=== PATIENT | male | born 1975 | race Caucasian/White ===

== ENCOUNTER → 2016-12-27 | Outpatient (CLI) | payer BC ==
[~2016-12-27] MED LIST: CIPR500T4 PO; CLIN300C3 PO; CYAN500T2 PO; HYDR-3714 PO
--- NOTE | 2016-12-27 17:25 | Diagnostic Imaging Report ---
INDICATION: Nephrolithiasis EXAM: KUB at 3:38 PM FINDINGS: There is a 3 mm opaque stone projecting over the inferior pole of the left kidney. Fecal material in the colon could obscure other small calculi. The bowel gas pattern is normal. IMPRESSION: There appears to be at least one small calculus in the inferior pole of the left kidney. Dictated by: Dictated on workstation # [id number]
== END ==
LOC: RAD 15:04
PROVIDERS: ATTEND Urology
DX: N20.0 Calculus of kidney (principal)
CPT/HCPCS: 74000

== ENCOUNTER 2016-12-28 10:24 | Day surgery (SDC) | payer BC ==
[~2016-12-28] VITALS: Ht 180.3 cm; Wt 108.9 kg
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
--- NOTE | 2016-12-28 09:29 | Progress Note-Pre Operative ---
Pre-Operative Progress Note H&P Reviewed The H&P was reviewed, patient examined and no changes noted. Date Seen by Provider: Dec 28, 2016 Time Seen by Provider: : Date H&P Reviewed: Dec 28, 2016 Time H&P Reviewed: : Pre-Operative Diagnosis: RT URETERAL STONE CAIT HUFFMAN MD Dec 28, 2016 9:29 am
[~2016-12-28 10:24] MED LIST changes: -CIPR500T4 PO
--- OUTSIDE RECORDS SUMMARY | 2016-12-28 10:27 | XMS REPORT | Continuity of Care Document ---
Author Author [facility] Organization [facility] Address Unknown Phone Unavailable Allergies Active Description Code Type Severity Reaction Onset Reported/Identified Relationship to Patient Clinical Status Yes No Known Drug Allergies [id number] Drug Allergy Unknown N/ A 11/05/2013 Medications [...] Status Pt. Type Provider Facility Loc./Unit Complaint [id number] 12/16/2015 09:34:00 2015 12:00:00 DIS Outpatient TOBY TROY MD [facility] [id number] 11/07/2013 10:20:00 2013 10:45:00 DIS Emergency [id number] 11/05/2013 20:10:00 2013 22:57:00 DIS Emergency
[2016-12-28] MEDS ORDERED: ceFAZolin 1 GM/NS 50 ML IVPB IV ONE ×2 (10:45)
[2016-12-28] MEDS ORDERED: cefTRIAXone 1 GM/NS 50 ML IVPB IV ONE ×2 (10:45)
[2016-12-28 11:00] VITALS: BP 125/76
[2016-12-28] MEDS ORDERED: FAMOTIDINE 20MG/2ML IV (PEPCID) ONE (11:25)
[2016-12-28] MEDS ORDERED: MIDAZOLAM 2 MG/2 ML (VERSED) VIAL ONE (11:44)
[2016-12-28] MEDS ORDERED: fentaNYL INJECTION 100 MCG/2 ML AMP ONE (11:44)
[2016-12-28] MEDS ORDERED: ONDANSETRON 4 MG/2 ML (SDV) Z0FRAN ONE (11:45)
[2016-12-28] MEDS ORDERED: ROCURONIUM 50 MG/5 ML (ZEMURON) VIAL IV ONE (11:45)
[2016-12-28] MEDS ORDERED: proPOfol 200 MG/20 ML (DIPRIVAN) VIAL IV ONE (11:45)
[2016-12-28] MEDS ORDERED: LACTATED RINGERS 1,000 ML IV ONE (11:45)
[2016-12-28] MEDS ORDERED: SEVOFLURANE (ULTANE) 15 ML INHAL SOLN ONE ×3 (11:45→12:24)
[2016-12-28] MEDS ORDERED: LIDOCAINE PF 2% 5 ML (XYLOCAINE) VIAL ONE (11:45)
--- NOTE | 2016-12-28 11:51 | Progress Note-Post Operative ---
Post-Operative Progess Note Surgeon (s)/Student Advisor (s) Surgeon CAIT HUFFMAN MD Student Advisor: N/A Pre-Operative Diagnosis RT URETERAL STONE Post-Operative Diagnosis SAME Procedure & Operative Findings Date of Procedure 12/28/16 Procedure Performed/Findings RT URETEROSCOPY WITH STONE LITHOTRIPSY Anesthesia Type GENERAL Estimated Blood Loss Estimated blood loss (mL): N/A Specimens/Packing Specimens Removed N/A Packing: N/A CAIT HUFFMAN MD Dec 28, 2016 11:51 am
--- NOTE | 2016-12-28 12:01 | Diagnostic Imaging Report ---
INDICATION: Preop evaluation for cystoscopy. COMPARISON: 12/27/2016. FINDINGS: Stable 3 mm mineralized focus overlying the lower pole of the left kidney. No additional mineralized foci are identified. Nonobstructive bowel gas pattern. Physiologic volume of stool. Normal regional skeleton. IMPRESSION: Stable 3 mm calculus overlying the lower pole of the left kidney. Dictated by: Dictated on workstation # [id number]
[2016-12-28] MEDS ORDERED: GLYCOPYRROLATE 0.2 MG/ML (ROBINUL) 2 ML VIAL ONE (12:24)
[2016-12-28] MEDS ORDERED: NEOSTIGMINE (BLOXIVERZ ) 1 MG/1ML 10 ML VIAL ONE (12:24)
[2016-12-28] MEDS ORDERED: morphine INJ 10 MG/ML 1ML (SYR OR VIAL) IVP PRN (12:45)
[2016-12-28] MEDS ORDERED: ONDANSETRON 4 MG/2 ML (SDV) Z0FRAN IVP PRN (12:45)
--- NOTE | 2016-12-28 12:53 | Discharge Inst-Urology ---
Discharge Inst-Urology Discharge Medications New, Converted, or Re-newed RX: RX on Chart Patient Instructions/Follow Up Plan Please make appointment to been seen in office in 2 weeks. Increase oral fluids for 48 hours and then as needed. Diet and Activity as tolerated. If questions or concerns contact your physician Or seek help at emergency department. CAIT HUFFMAN MD Dec 28, 2016 12:53 pm
[2016-12-28 13:35] VITALS: BP 110/66
[2016-12-28 14:05] VITALS: BP 120/89
[2016-12-28] MEDS ORDERED: CIPR500T4 PO (14:24)
[2016-12-28 14:35] VITALS: BP 112/65
[2016-12-28 15:05] VITALS: BP 112/65
--- NOTE | 2016-12-29 04:29 | OPERATIVE REPORT ---
DATE OF SERVICE: 12/28/2016 PREOPERATIVE DIAGNOSIS: Right distal ureteral stone. POSTOPERATIVE DIAGNOSIS: Right distal ureteral stone. OPERATIONS PERFORMED: Right ureteroscopy with stone lithotripsy. SURGEON: Gary Huffman M.D. ANESTHESIA: General. COMPLICATIONS: None. PROCEDURE IN DETAIL: Under satisfactory general anesthesia, the patient in the lithotomy position, genitalia were prepped and draped in the usual sterile fashion. A 23-Belarusian cystoscope was introduced under direct vision. The anterior urethra was normal. Prostate was mildly enlarged with mild bladder neck obstruction. The bladder was entered. The only abnormality was the swelling and edema of the right ureteral orifice intramural portion. I removed the cystoscope, inserted a 6.9-Belarusian semi-rigid ureteroscope into the orifice. I visualized the stone in the intramural portion, broke it up with Lithoclast, completely went above it to make sure there is no more stone all the way up to the mid ureter back and forth. Removed the ureteroscope, reinserted a cystoscope to empty the bladder. The patient tolerated the procedure and anesthesia well and was sent to recovery room in stable condition. Job ID: [id number] DocumentID: [id number] Dictated Date: 12/28/2016 12:56:15 Outreach Professional Date: 12/28/2016 23:16:03 Dictated By: GARY HUFFMAN MD
== END 2016-12-28 15:05 | disposition home or self-care (01) ==
LOC: SDC 10:24
PROVIDERS: ATTEND Urology
DX: N20.1 Calculus of ureter (principal); E11.9 Type 2 diabetes mellitus without complications; K21.9 Gastro-esophageal reflux disease without esophagitis; Z79.899 Other long term (current) drug therapy
CPT/HCPCS: 74000; 82962; 87081

== ENCOUNTER 2017-01-23 15:00 | Outpatient (CLI) | payer BC ==
[~2017-01-23] VITALS: Ht 180.3 cm; Wt 108.9 kg
[~2017-01-23 15:00] MED LIST changes: +CIPR500T4 PO
== END 2017-01-23 15:18 ==
LOC: PREOP 15:00
PROVIDERS: ATTEND Urology
DX: N20.0 Calculus of kidney; Z01.818 Encounter for other preprocedural examination

== ENCOUNTER 2017-01-29 06:57 | Day surgery (SDC) | payer BC ==
[~2017-01-29] VITALS: Ht 180.3 cm; Wt 108.9 kg
--- NOTE | 2017-01-29 07:12 | Progress Note-Pre Operative ---
Pre-Operative Progress Note H&P Reviewed The H&P was reviewed, patient examined and no changes noted. Date Seen by Provider: Jan 29, 2017 Time Seen by Provider: 07:11 Date H&P Reviewed: Jan 29, 2017 Time H&P Reviewed: 07:11 Pre-Operative Diagnosis: LT RENAL STONE CAIT HUFFMAN MD Jan 29, 2017 7:11 am
[2017-01-29 07:15] VITALS: BP 123/70
--- NOTE | 2017-01-29 07:25 | Diagnostic Imaging Report ---
INDICATION: Preop evaluation. COMPARISON: 12/28/2016. FINDINGS: Stable 3 mm calcific density projecting over the lower pole of the left kidney. Nonobstructive bowel gas pattern. Moderate amount of colonic stool may be physiologic in nature. Normal regional skeleton. IMPRESSION: 1. Stable position of 3 mm left renal calculus. Dictated by: Dictated on workstation # [id number]
[2017-01-29] MEDS ORDERED: CATHETER FLUSH 10 ML SYR IV PRN (07:30)
[2017-01-29] MEDS ORDERED: ceFAZolin 1 GM/NS 50 ML IVPB IV ONE ×2 (07:30)
[2017-01-29] MEDS: LACTATED RINGERS 1,000 ML IV PRN ×2 (08:21→11:09)
[2017-01-29] MEDS ORDERED: FUROSEMIDE 40 MG/4 ML INJ (LASIX) ONE (09:14)
[2017-01-29] MEDS ORDERED: MIDAZOLAM 2 MG/2 ML (VERSED) VIAL ONE (09:14)
[2017-01-29] MEDS ORDERED: proPOfol 200 MG/20 ML (DIPRIVAN) VIAL IV ONE (09:14)
[2017-01-29] MEDS ORDERED: LACTATED RINGERS 1,000 ML IV ONE ×2 (09:14→11:03)
[2017-01-29] MEDS ORDERED: SEVOFLURANE (ULTANE) 15 ML INHAL SOLN ONE (09:14)
[2017-01-29] MEDS ORDERED: fentaNYL INJECTION 100 MCG/2 ML AMP ONE (09:14)
[2017-01-29] MEDS ORDERED: ONDANSETRON 4 MG/2 ML (SDV) Z0FRAN ONE (09:14)
--- NOTE | 2017-01-29 10:02 | Progress Note-Post Operative ---
Post-Operative Progess Note Surgeon (s)/Silver Brazer (s) Surgeon CAIT HUFFMAN MD Silver Brazer: N/A Pre-Operative Diagnosis LT RENAL STONE Post-Operative Diagnosis SAME Procedure & Operative Findings Date of Procedure 01/29/17 Procedure Performed/Findings LT ESWL Anesthesia Type GENERAL Estimated Blood Loss Estimated blood loss (mL): N/A Specimens/Packing Specimens Removed N/A Packing: N/A CAIT HUFFMAN MD Jan 29, 2017 10:02 am
--- NOTE | 2017-01-29 10:06 | Discharge Inst-Urology ---
Discharge Inst-Urology Discharge Medications New, Converted, or Re-newed RX: RX on Chart Patient Instructions/Follow Up Plan Please make appointment to been seen in office in 4 weeks. KUB prior to it KUB on way home Post ESWL instructions Increase oral fluids for 48 hours and then as needed. Diet and Activity as tolerated. If questions or concerns contact your physician Or seek help at emergency department. CAIT HUFFMAN MD Jan 29, 2017 10:06 am
[2017-01-29] MEDS ORDERED: KETOROLAC 30 MG/ML VIAL IVP ONE (10:45)
[2017-01-29] MEDS ORDERED: TAMS0.4C98 PO (11:13)
[2017-01-29] MEDS ORDERED: HYDR-3874 PO (11:13)
[2017-01-29] MEDS ORDERED: NITR-68 PO (11:13)
[2017-01-29 11:15] VITALS: BP 119/72
[2017-01-29 11:45] VITALS: BP 119/72
[2017-01-29] MEDS ORDERED: ACETAMINOPHEN 325 MG TABLET/CAPLET (TYLENOL) ONE (12:21)
[2017-01-29] MEDS ORDERED: ACETAMINOPHEN 325 MG TABLET/CAPLET (TYLENOL) PO ONE (12:45)
--- NOTE | 2017-01-29 12:49 | Diagnostic Imaging Report ---
INDICATION: Status post left-sided ESWL. COMPARISON: Earlier same day. FINDINGS: Two frontal radiographic views of the abdomen were obtained. Previously described 2 mm calculus in the inferior pole of the left kidney is no longer identified. No other abnormal extraosseous calcifications or radiopaque foreign bodies are seen. Small bowel loops are nondistended. Iloh-rv-azdatbms air and stool seen scattered throughout the colon. There is no large collection of free intraperitoneal air. Bony structures show no acute abnormalities. IMPRESSION: 1. Previously described left renal calculus is no longer identified. Dictated by: Dictated on workstation # [id number]
--- NOTE | 2017-01-30 00:49 | OPERATIVE REPORT ---
DATE OF SERVICE: 01/29/2017 PREOPERATIVE DIAGNOSIS: Left renal stone. POSTOPERATIVE DIAGNOSIS: Left renal stone. OPERATION PERFORMED: Left ESWL. SURGEON: Gary Huffman MD ANESTHESIA: General. COMPLICATIONS: None. PROCEDURE IN DETAIL: Under satisfactory general anesthesia, the patient in the supine position on ESWL table, the left renal stone was localized. Shocks were delivered at kV of 5. Total of 2500 shocks looked to have fragmented the stone. The patient received 40 mg of Lasix and 30 mg of Toradol at the end of the procedure. He tolerated the procedure and anesthesia well, was sent to recovery room in stable condition. Job ID: [id number] DocumentID: [id number] Dictated Date: 01/29/2017 10:17:04 Fermentologist Date: 01/30/2017 00:49:04 Dictated By: GARY HUFFMAN MD
== END 2017-01-29 12:35 | disposition home or self-care (01) ==
LOC: SDC 06:57
PROVIDERS: ATTEND Urology
DX: N20.0 Calculus of kidney (principal); E11.9 Type 2 diabetes mellitus without complications; K21.9 Gastro-esophageal reflux disease without esophagitis
CPT/HCPCS: 74000; 82962; 87081

== ENCOUNTER → 2017-05-24 | Outpatient (CLI) | payer OTHER, BC ==
[~2017-05-24] MED LIST changes: +HYDR-3874 PO; +NITR-68 PO; +TAMS0.4C98 PO
--- NOTE | 2017-05-24 13:13 | Diagnostic Imaging Report ---
PROCEDURE: MRI pelvis without contrast. TECHNIQUE: Multiplanar, multisequence MRI of the pelvis was performed without contrast. INDICATION: Recent fall, complaining of low pelvic pain. FINDINGS: The marrow signal intensity of the pelvis and proximal femora is normal. Specifically, the marrow signal of the sacrum and coccyx is normal. No definite fracture is seen. The marrow signal of the superior and inferior pubic rami is unremarkable apart from minimal edema at the symphysis. No hip fracture is seen. No free fluid in the pelvis is identified. The common hamstring tendon attachments on the ischial tuberosities appear normal. No hip joint effusion is seen. IMPRESSION: Unremarkable MRI of the pelvis. No acute abnormality is detected. Dictated by: Dictated on workstation # [id number]
--- NOTE | 2017-05-24 14:19 | Diagnostic Imaging Report ---
PROCEDURE: MRI lumbar spine. TECHNIQUE: Multiplanar, multisequence MRI of the lumbar spine was performed without contrast. INDICATION: Fall, complaining of pelvic pain and back pain. FINDINGS: Curvature and alignment of the lumbar spine is normal. The vertebral body heights are well maintained. The marrow signal intensity is normal. No geographic marrow lesion or acute compression fracture is detected. There is some desiccation of the discs at the L3-L4, L4-L5 and L5-S1 levels compatible with degenerative disc disease. There is mild disc space narrowing present as well. The conus is unremarkable at the L1 level. L1-L2: No central canal or neuroforaminal stenosis is identified. L2-L3: Unremarkable. L3-L4: There is annular bulging but no central canal stenosis is seen. The neuroforamina are patent. L4-L5: Minimal annular bulging is present but no central canal or neuroforaminal stenosis is identified. L5-S1: Minimal asymmetric wide-based right paramidline disc bulge is seen but no resultant central canal stenosis is identified. The neuroforamina are patent. The paraspinous tissues are unremarkable. IMPRESSION: Mild lower lumbar degenerative disc disease. No focal disc protrusion, central canal or neuroforaminal stenosis is identified. No acute fracture is identified. Dictated by: Dictated on workstation # [id number]
== END ==
LOC: RAD 11:48
PROVIDERS: ATTEND Nurse Practitioner Family
DX: M51.36 Other intervertebral disc degeneration, lumbar region (principal); M62.81 Muscle weakness (generalized); R10.2 Pelvic and perineal pain; W19.XXXA Unspecified fall, initial encounter
CPT/HCPCS: 72148; 72195

== ENCOUNTER 2019-06-11 18:31 | Emergency (ER) | payer BC ==
[~2019-06-11] VITALS: Ht 180 cm; Wt 109.0 kg
[~2019-06-11 18:31] MED LIST changes: +ASPI-999 PO; +DILT120C82 PO; +HYDR-3870 PO; -HYDR-3874 PO; +RANI-613 PO; -TAMS0.4C98 PO; +TMSL.4C PO
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
[2019-06-11 19:22] LABS: BASOPHILS % (AUTO) 0 % (0-10); EOSINOPHILS # (AUTO) 0.2 10^3/uL (0.0-0.3); EOSINOPHILS % (AUTO) 3 % (0-10); HEMATOCRIT 44 % (40-54); HEMOGLOBIN 15.4 G/DL (13.3-17.7); LYMPHOCYTES # (AUTO) 1.8 X 10^3 (1.0-4.0); LYMPHOCYTES % (AUTO) 30 % (12-44); MEAN CORPUSCULAR HEMOGLOBIN 29 PG (25-34); MEAN CORPUSCULAR HGB CONC 35 G/DL (32-36); MEAN CORPUSCULAR VOLUME 82 FL (80-99); MONOCYTES # (AUTO) 0.4 X 10^3 (0.0-1.0); MONOCYTES % (AUTO) 7 % (0-12); NEUTROPHILS # (AUTO) 3.5 X 10^3 (1.8-7.8); NEUTROPHILS % (AUTO) 59 % (42-75); PLATELET COUNT 221 10^3/uL (130-400); WHITE BLOOD COUNT 5.9 10^3/uL (4.3-11.0)
[2019-06-11] MEDS ORDERED: IOHEXOL 350 MG/ML 100 ML (OMNIPAQUE 350) VIAL IV ONE (19:30)
[2019-06-11] MEDS ORDERED: HOLD METFORMIN - RECEIVED CONTRAST 20 ML VIAL IV SCH (19:30)
[2019-06-11] MEDS ORDERED: NS 100 ML (IVPB) BAG IV ONE (19:30)
[2019-06-11 19:44] LABS: ALANINE AMINOTRANSFERASE 50 U/L (0-55); ALBUMIN 4.4 GM/DL (3.2-4.5); ALKALINE PHOSPHATASE 98 U/L (40-136); BILIRUBIN,TOTAL 1.9 MG/DL (0.1-1.0); BUN/CREATININE RATIO 17; CALCIUM 9.4 MG/DL (8.5-10.1); CARBON DIOXIDE 19 MMOL/L (21-32); CHLORIDE 104 MMOL/L (98-107); CREATININE SERUM 1.09 MG/DL (0.60-1.30); GFR ESTIMATED > 60; GLUCOSE 300 MG/DL (70-105); POTASSIUM 3.5 MMOL/L (3.6-5.0); SODIUM 136 MMOL/L (135-145); TOTAL PROTEIN 7.3 GM/DL (6.4-8.2)
[2019-06-11 19:58] LABS: BASOPHILS % (MANUAL) 1 %; EOSINOPHILS % (MANUAL) 3 %; LYMPHOCYTES % (MANUAL) 36 %; MONOCYTES % (MANUAL) 6 %; NEUTROPHILS % (MANUAL) 54 %; RBC MORPH NORMAL
[2019-06-11 19:59] LABS: SMUDGE CELLS SLIGHT
[2019-06-11] MEDS ORDERED: NS IV 1000 ML 1,000 ML IV SCH (20:00)
--- NOTE | 2019-06-11 20:41 | Diagnostic Imaging Report ---
PROCEDURE: CT neck soft tissue with contrast. TECHNIQUE: Multiple contiguous axial images were obtained through the neck after the administration of contrast. Auto Exposure Controls were utilized during the CT exam to meet ALARA standards for radiation dose reduction. INDICATION: Neck pain after drinking soda COMPARISON: None available FINDINGS: The partially visualized intracranial contents are unremarkable. The orbits are unremarkable. The muscles of mastication are unremarkable. Parapharyngeal fat is symmetric and well-maintained. The salivary glands are unremarkable. The epiglottis and aryepiglottic folds are unremarkable. The thyroid gland is unremarkable. No significant adenopathy within the neck. The visualized esophagus is unremarkable. Trachea is patent. No focal fluid collection. The paranasal sinuses are clear. No temporomandibular joint dislocation with degenerative changes involving the right temporomandibular joint. Prominent periapical lucency associated with the right mandibular 2nd molar. Dental caries associated with the left maxillary 1st molar. The visualized upper lungs demonstrate a 5 mm subpleural right upper lobe pulmonary nodule. No acute osseous abnormality with scattered degenerative changes. IMPRESSION: No acute abnormality. A 5 mm subpleural right upper lobe pulmonary nodule. Recommend a dedicated CT of the chest in one year to monitor stability. Degenerative changes within the cervical spine without acute osseous abnormality. A few scattered dental caries and periodontal disease is present. Dictated by: Dictated on workstation # [id number]
[2019-06-11] MEDS ORDERED: predniSONE 20 MG TAB PO ONE (21:15)
[2019-06-11] MEDS ORDERED: PRD20T PO (21:15)
[2019-06-11 21:35] VITALS: BP 146/97
== END 2019-06-11 21:36 | disposition home or self-care (01) ==
LOC: EDUNIT# 18:31 → ER 18:32
DX: J02.9 Acute pharyngitis, unspecified (principal); K21.9 Gastro-esophageal reflux disease without esophagitis; E11.9 Type 2 diabetes mellitus without complications; F17.210 Nicotine dependence, cigarettes, uncomplicated; Z88.5 Allergy status to narcotic agent; Z79.82 Long term (current) use of aspirin; Z82.49 Family history of ischemic heart disease and other diseases of the circulatory system
CPT/HCPCS: 36415; 70491; 80053; 85007; 85027; 87430; 96360

== ENCOUNTER → 2019-10-02 | Outpatient (CLI) | payer BC ==
[~2019-10-02] MED LIST changes: +PRD20T PO
--- NOTE | 2019-10-02 12:26 | Diagnostic Imaging Report ---
INDICATION: Painful erections. Study performed to evaluate for calculi or foreign bodies. TIME OF EXAM: 11:10 AM Multiple views of the penis were obtained. No definite calculi or radiopaque foreign body is detected. IMPRESSION: No abnormality is detected. Dictated by: Dictated on workstation # [id number]
== END ==
LOC: RAD 10:31
PROVIDERS: ATTEND Urology
DX: N48.30 Priapism, unspecified (principal)
CPT/HCPCS: 72190

== ENCOUNTER 2021-04-11 05:37 | Outpatient (CLI) | payer OTHER ==
[~2021-04-11] VITALS: Ht 180.3 cm; Wt 104.7 kg
[~2021-04-11 05:37] MED LIST changes: -CIPR500T4 PO; +CIPR500T5 PO
[2021-04-11] MEDS ORDERED: LISI5TAB20 PO (14:45)
[2021-04-11] MEDS ORDERED: METF-397 PO (14:45)
== END 2021-04-11 15:10 | disposition home or self-care (01) ==
LOC: PREOP 05:37
PROVIDERS: ATTEND Surgery
DX: Z01.818 Encounter for other preprocedural examination (principal)

== ENCOUNTER → 2021-04-18 | Day surgery (SDC) | payer BC, OTHER ==
[~2021-04-18] VITALS: Ht 180.3 cm; Wt 104.7 kg
[~2021-04-18] MED LIST changes: +LACTATED RINGERS 1,000 ML IV ONE; +LACTATED RINGERS 1,000 ML IV STA; +LISI5TAB20 PO; +METF-397 PO; +MIDAZOLAM 2 MG/2 ML (VERSED) VIAL ONE; +PROPOFOL INJECTION 50 ML IV ONE
--- NOTE | 2021-04-18 10:36 | Progress Note-Pre Operative ---
Pre-Operative Progress Note H&P Reviewed The H&P was reviewed, patient examined and no changes noted. Date Seen by Provider: Apr 18, 2021 Time Seen by Provider: 10:34 Date H&P Reviewed: Apr 18, 2021 Time H&P Reviewed: 10:34 Pre-Operative Diagnosis: hx of polyps GAIL VELASQUEZ DO Apr 18, 2021 10:36
[2021-04-18 10:40] VITALS: BP 135/80
--- NOTE | 2021-04-18 11:51 | Discharge Inst-Simple/Standard ---
Discharge Inst-Standard Patient Instructions/Follow Up Plan of Care/Instructions/FU: Pierce 5 year appointment. Any issues before that be seen at that time. Activity as Tolerated: Yes Discharge Diet: Regular Diet GAIL VELASQUEZ DO Apr 18, 2021 11:51
[2021-04-18 11:52] VITALS: BP 92/53
[2021-04-18 11:57] VITALS: BP 100/53
--- NOTE | 2021-04-18 12:31 | Anesthesia-General Post-Op ---
MAC Patient Condition Mental Status/LOC: Same as Preop Cardiovascular: Satisfactory Nausea/Vomiting: Absent Respiratory: Satisfactory Pain: Controlled Complications: Absent Post Op Complications Complications None Follow Up Care/Instructions Patient Instructions None needed. Anesthesiology Discharge Order Discharge Order Patient is doing well, no complaints, stable vital signs, no apparent adverse anesthesia problems. No complications reported per nursing. RICH SORIA CRNA Apr 18, 2021 12:31
[2021-04-18 12:32] VITALS: BP 119/72
--- NOTE | 2021-04-18 18:03 | OPERATIVE REPORT ---
DATE OF SERVICE: 04/18/2021 PREOPERATIVE DIAGNOSIS: History of polyps. POSTOPERATIVE DIAGNOSIS: Normal colon. PROCEDURE: Colonoscopy. SURGEON: Gail Pelayo DO ANESTHESIA: Per BUSINESS ACCOUNT LEADER. ESTIMATED BLOOD LOSS: None. COMPLICATIONS: None. INDICATIONS: The patient is a 46-year-old male needing screening colonoscopy. He understands risks and benefits of procedure and wishes to proceed. Consent was signed in the chart. DESCRIPTION OF PROCEDURE: The patient was taken to endoscopy suite, placed in left lateral recumbent position. Timeout was performed. Digital rectal exam was performed. No palpable polyps, masses or ulcerations. Scope was inserted in the rectum and advanced all the way to cecum with minimal difficulty. Prep was adequate. Scope was slowly retracted back. No polyps, masses or ulcerations in the cecum, ascending, transverse, descending and sigmoid colon. Once in the rectum, scope was retroflexed noting no other pathology. Scope was returned to its normal position, slowly withdrawn until completely removed. The patient tolerated procedure well without any complications, taken to recovery room in stable condition. RECOMMENDATIONS: The patient will need repeat colonoscopy in 5 years. Any issues before that be seen at that time. Job ID: [id number] DocumentID: [id number] Dictated Date: 04/18/2021 11:53:58 Pensionholder Information Clerk Date: 04/18/2021 18:02:43 Dictated By: GAIL PELAYO DO
== END | disposition home or self-care (01) ==
LOC: ENDO 10:20
PROVIDERS: ATTEND Surgery
DX: Z12.11 Encounter for screening for malignant neoplasm of colon (principal); I10 Essential (primary) hypertension; E11.9 Type 2 diabetes mellitus without complications; E78.5 Hyperlipidemia, unspecified; Z88.5 Allergy status to narcotic agent; Z79.84 Long term (current) use of oral hypoglycemic drugs; Z79.899 Other long term (current) drug therapy
CPT/HCPCS: 82947